=== PATIENT | male | born 1935 | race African-American/Black ===

== ENCOUNTER 2016-10-21 16:09 | Inpatient (IN) | payer MEDICARE ==
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
--- NOTE | ~2016-10-21 | CN ---
Consultation Report [address] [place]. [address] NAME: JOANNE TAVERAS : 34 STATUS : ADM IN PAT#: [id number] AGE: 80 ADM/REG DATE : 10/22/16 MR#: [id number] REPORT SERV DATE: 10/23/16 DICTATED BY: LA CASTILLO DATE: 10/23/16 REPORT STATUS : Draft TRANSCRIBED BY: MODL DATE: 10/23/16 PULMONARY CONSULTATION DATE OF CONSULTATION: 10/23/2016 REASON FOR CONSULTATION: COPD exacerbation. HISTORY OF PRESENT ILLNESS: Mr. Taveras is an 80-year-old black male former smoker with O2 dependent COPD, was admitted with wheezing and marked dyspnea for a few hours. He is being treated with bronchodilators, systemic and inhaled steroids as well as antibiotics and supplemental oxygen for a COPD exacerbation. 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 Despite his treatment has been alienated above, he complains of continued dyspnea and wheezing, though he does feel better than prior to admission. He denies fever, chills, night sweats, hemoptysis, sputum production, or chest pain. His daughter who is at the bedside confirms that he has not had these symptoms since the onset of his current illness. No close contacts have similar symptoms. He notes that he has had the flu shot this season and had a recent pneumonia vaccine though he is unable to comment on whether it was the Prevnar 13 vaccine or the Pneumovax. PAST MEDICAL HISTORY: 1. COPD as described above. 2. Chronic bronchitis. 3. Chronic hypoxia-on supplemental oxygen at a flow rate of 2 L/minute 24 hours a day. 4. Prior pulmonary embolism, treated with Coumadin for 6 months. 5. Former smoker. 6. Peripheral vascular disease with vascular stent to left femoral artery. 7. Prior CVA with residual left hemiparesis. 8. Esophageal stricture with subsequent dilatation. 9. Previous cervical fusion. 10.Hyperlipidemia. 11.GERD. 12.Prior prostate surgery. 13.Left lower extremity DVT. 14.Diabetes mellitus. FAMILY HISTORY: He denies a family history of pulmonary diseases. SOCIAL HISTORY: Mr. Taveras smoked one pack of cigarettes per day for 60 years and quit Consultation Report [address] [address] NAME: JOANNE TAVERAS : 34 STATUS : ADM IN PAT#: [id number] AGE: 80 ADM/REG DATE : 10/22/16 MR#: [id number] REPORT SERV DATE: 10/23/16 DICTATED BY: LA CASTILLO DATE: 10/23/16 REPORT STATUS : Draft TRANSCRIBED BY: MENDOZA DATE: 10/23/16 approximately 15 years ago. He denies past/present drug use, chewing tobacco, or significant secondhand smoke exposure. He denies ethanol intake. 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 He is and has 10 living children and 3 children. MEDICATIONS: Outpatient and inpatient medications were reviewed and are as documented in the record. He was unable to name his outpatient pulmonary medications, but per the available information, he was on Advair 500/50 mcg twice daily, Spiriva 18 mcg once daily, and albuterol via nebulization twice daily. He reports compliance with these medications. ALLERGIES: HE DENIES MEDICATION ALLERGIES. REVIEW OF SYSTEMS: A 10-point system review was conducted and is remarkable for the symptoms as described in the history of present illness. He denies symptoms suggestive of obstructive sleep apnea. PHYSICAL EXAMINATION: VITAL SIGNS: Temperature 98.1 degrees, heart rate 80, blood pressure 146/69, respiratory rate 18, and oxygen saturation 98% on supplemental oxygen at a flow rate of 2 L/minute. GENERAL: Pleasant, elderly black male. Alert, oriented, no apparent distress. Speaking in full sentences without problems. Occasional cough during exam. HEENT: Normocephalic. Atraumatic. There is no scleral icterus. The conjunctivae are clear. The oropharynx is clear. NECK: Supple. No lymphadenopathy was noted. LUNGS: Good effort. There are scattered inspiratory and expiratory wheezes in all reddy. There are rare rhonchi. There are no crackles. HEART: Regular rate and rhythm. No ectopy was noted. ABDOMEN: Soft. Nontender. Nondistended. There are normal bowel sounds in all four quadrants. BILATERAL EXTREMITIES: There is no clubbing, cyanosis, or edema. NEUROLOGICAL: A limited exam was found to be nonfocal. SKIN: No rashes were noted. LABORATORY RESULTS: Labs were reviewed and are as documented in record. Notable labs include a white blood cell count of 7.7. The BNP is 5.0. IMAGING: A chest x-ray done this admission did not reveal any infiltrates or effusions. There is right lower lobe atelectasis and hyperinflation that appears to be stable when compared with a previous chest x-ray done approximately one month ago. ASSESSMENT AND PLAN: Mr. Taveras is an 80-year-old black male former smoker with a chronic obstructive pulmonary disease exacerbation though he has no evidence of active infection. He currently is on antibiotics, Solu-Medrol 40 mg IV q.12 hours, Rocephin and azithromycin as well as budesonide 0.5 mg via nebulization every 12 hours. He continues to have significant symptoms despite this therapeutic regimen. Consultation Report [facility] [address] [place] [address] NAME: JOANNE TAVERAS : 34 STATUS : ADM IN [facility]#: [id number] AGE: 80 ADM/REG DATE : 10/22/16 MR#: [id number] REPORT SERV DATE: 10/23/16 DICTATED BY: LA CASTILLO DATE: 10/23/16 REPORT STATUS : Draft TRANSCRIBED BY: MENDOZA DATE: 10/23/16 Recommend: Check sputum culture. The patient is actively wheezing, so he would benefit from increased steroids. The Solu- Medrol will be increased to 60 mg IV q.6 h. and his budesonide dose will be increased to 1 mg q.12 h. via nebulization. He describes problems with expectorated sputum and does have atelectasis noted on chest imaging. Recommend improving pulmonary toilet by adding Ez-PAP and flutter valve. He should take home the flutter valve upon discharge, as this would be useful for him as an outpatient. Recommend continuing bronchodilators. Check procalcitonin. There is no evidence of infection on chest imaging. His white blood cell count is normal, and he denies sputum production. If his procalcitonin is within normal limits, could discontinue Rocephin. Would continue azithromycin for the full course. Thank you very much for this consultation. WILLIAM/MENDOZA La Castillo M.D. / [id number] CC: Giana Roy M.D.
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
[~2016-10-21 16:09] MED LIST: *UNABLE3; ACET500CAP PO; ADVAIR INH; ALAWAY0.025 % OPH; ALBUTEROL0.083 % INH; ALBUTEROL5 INH; ALPHAGAN OPH; AMITIZA24 PO; AMOXIL500 MG PO; AMOXIL500C PO; ASPERCREME TOP; ATV.5 PO; ATV1 PO; AUG500 PO; AZO-CRANBERY450 MG PO; BACDS PO; BIOTENE MOUTH SPRAY PO; BIOTENE PO; BIOTENE SPRAY MT; BISR PR; BIST PO; BRIMONIDINE 0.15% OPH; BRIMONIDINE0.2 % OPH; BROVANA15 MCG INH; CAT1 PO; CEFT5 PO; CELEXA10 PO; CLARIT10 PO; CONSTULOSE PO; COZ25 PO; COZ50 PO; COZAAR100 MG PO; DALIRESP500 MCG PO; DIAMODE2 MG PO; DITRO5 PO; DSS PO; ELIQUIS 2.5 MG2.5 MG PO; FERROUS SULF325 M1 PO; FESO4 PO; FLECTOR1.3 % TOP; FLOMAX4 PO; FLUCON1 PO; FOLIC PO; GENTEAL; GGDM5ML PO; GGEXPUD PO; HUMI PO; HYZAAR1 TAB PO; IMDUR30 PO; IMDUR60 PO; IMOD PO; IRON325 MG PO; KCL20UDL PO; KLOR-CON 1010 MEQ PO; KLOR-CON M1010 MEQ PO; KLOR-CON M2020 MEQ PO; L20 PO; LACT30UDL PO; LANTUS SC; LEVAQUIN750 MG PO; LIPITOR20 PO; LOP25 PO; MIRALAX POWDER1 PKT PO; MIRALAXPKT PO; MORPHINE 20MG/ML PO; MORPHINE S20 MG/5 ML PO; MUCINEX600 MG PO; MYLANTA LIQUID PO; MYLICON 80 MG T80 MG PO; NATURE'S OPH; NEUR300 PO; NEURUDL250 PO; NITROQUICK0.4 MG SL; NITROSTAT0.4 MG SL; NORCO1 TA1 PO; NORCO1 TA2 PO; NORV10 PO; NORV5 PO; P10 PO; P20 PO; PERI-COLACE1 TAB PO; PR25 PO; PREDFORTE OPH; PRILOSEC40 MG PO; PROAIR HFA INH; PROSCAR5 PO; PROTONIX PO; PROVENTSOL INH; PROVHFA INH; PULRESP.5 INH; PULRESP1 INH; REFRESH OPH; ROXANOL20 MG/ML PO; SALIVA SUBSTITUTE PO/LIQ; SENOKOTS PO; SENTAB PO; SPIRIVA INH; SYSTANE; Spiriva Handihaler; T PO; TAMIFLU PO; TEARS NATURA OPH; TROLAMINE TOP; TRUSOPT2 % OPH; UROGESIC-BLUE PO; VITC500 PO; VOLTAREN1 % T; XARELTO PO; XARELTO15 MG PO; XARELTO20 MG PO; Z100 PO; ZOFRAN ODT4 MG PO; ZOFRAN ODT4 MG PO/SL; ZOL50 PO; ZOLOFT25 MG PO; ZYVOXPO PO; [UNRECOGNIZED DRUG - CODE]; [UNRECOGNIZED DRUG - OTHER] PO
[2016-10-21 17:31] LABS: BASOPHILS 0.1 %; BASOPHILS ABSOLUTE 0.01 10/3/uL (0.0-0.16); EOSINOPHILS 2.5 %; EOSINOPHILS ABSOLUTE 0.17 10/3/uL (0.0-0.53); HEMATOCRIT 27.1 % (40.0-51.0); HEMOGLOBIN 8.4 g/dL (13.6-17.8); IMMATURE GRANULOCYTES 0.3 %; IMMATURE GRANULOCYTES ABSOLUTE 0.02 10/3/uL (0.0-0.11); LYMPHOCYTES 20.1 %; LYMPHOCYTES ABSOLUTE 1.38 10/3/uL (0.67-4.30); MEAN CORPUSCULAR HEMOGLOB 28.6 pg (26.0-34.0); MEAN PLATELET VOLUME 8.6 fL (9.2-13.0); MONOCYTES 4.5 %; MONOCYTES ABSOLUTE 0.31 10/3/uL (0.21-1.20); NEUTROPHILS 72.5 %; NEUTROPHILS ABSOLUTE 4.98 10/3/uL (2.02-8.40); PLATELET COUNT 328 10/3/uL (150-400); RBC DISTRIBUTION WIDTH 16.1 % (12.0-16.0); RED CELL COUNT 2.94 10/6/uL (4.7-6.1)
[2016-10-21 17:36] LABS: ER CBC TAT 0 Hrs 09 Mins; MANUAL DIFF NO %; MEAN CORPUSCULAR VOLUME 92.2 fL (80-100); WHITE BLOOD CELLS 6.9 10/3/uL (4.5-10.5)
[2016-10-21 17:40] LABS: INFLUENZA A SCREEN NEGATIVE (NEGATIVE); INFLUENZA B SCREEN NEGATIVE (NEGATIVE)
[2016-10-21 17:47] LABS: A/G RATIO 0.7 (0.7-1.9); ALBUMIN 2.8 G/DL (3.5-5.0); ALKALINE PHOSPHATASE 87 U/L (45-117); CHLORIDE, SERUM 107 MMOL/L (96-112); CO2 (CARBON DIOXIDE) 30 MMOL/L (24-34); CREATININE 1.12 MG/DL (0.70-1.30); GFR AFRICAN AMERICAN 71 ML/MIN (>=60); GFR NON AFRICAN AMERICAN 61 ML/MIN (>=60); GLOBULIN 4.1 G/DL (2.5-4.1); POTASSIUM, SERUM 4.2 MMOL/L (3.5-5.3); SGOT(AST) 18 U/L (5-40); SGPT(ALT) 28 U/L (5-65); SODIUM, SERUM 146 MMOL/L (135-148); TOTAL BILIRUBIN 0.5 MG/DL (0-1.2); TOTAL PROTEIN 6.9 G/DL (6.0-8.5)
[2016-10-21 17:48] LABS: BUN (BLOOD UREA NITROGEN) 31 MG/DL (6-23); GLUCOSE, SERUM 162 MG/DL (60-99)
[2016-10-21 18:04] LABS: BAND NEUTROPHILS 3 %; BASOPHILS 2 %; BASOPHILS ABSOLUTE (CALC) 0.14 10/3/uL (0.0-0.16); ER DIFF TAT 0 Hrs 37 Mins; LYMPHOCYTES 12 %; LYMPHOCYTES ABSOLUTE (CALC) 0.83 10/3/uL (0.67-4.30); MONOCYTES 4 %; MONOCYTES ABSOLUTE (CALC) 0.28 10/3/uL (0.21-1.20); NEUTROPHILS ABSOLUTE (CALC) 5.66 10/3/uL (2.02-8.40); SEGMENTED NEUTROPHIL (0) 79 %; TOTAL NUCLEATED CELLS 100
[2016-10-21 18:05] LABS: HYPOCHROMIA 1+ (3-10/OIF) (0-2/OIF); PLATELET ESTIMATE ADQ (ADEQUATE)
[2016-10-21] MEDS ORDERED: AMITIZA24 PO (23:07)
[2016-10-21] MEDS ORDERED: PERI-COLACE1 TAB PO (23:08)
[2016-10-21] MEDS ORDERED: FERROUS SULFATE PO (23:08)
[2016-10-21] MEDS ORDERED: ACET500CAP PO (23:09)
[2016-10-22 03:22] LABS: BASOPHILS 0.2 %; BASOPHILS ABSOLUTE 0.01 10/3/uL (0.0-0.16); EOSINOPHILS 0 %; HEMOGLOBIN 8.8 g/dL (13.6-17.8); IMMATURE GRANULOCYTES 0.2 %; IMMATURE GRANULOCYTES ABSOLUTE 0.01 10/3/uL (0.0-0.11); LYMPHOCYTES 10.2 %; LYMPHOCYTES ABSOLUTE 0.53 10/3/uL (0.67-4.30); MEAN CORPUS HGB CONC 30.3 g/dL (32.0-36.0); MEAN CORPUSCULAR HEMOGLOB 28.1 pg (26.0-34.0); MEAN CORPUSCULAR VOLUME 92.7 fL (80-100); MEAN PLATELET VOLUME 9.9 fL (9.2-13.0); MONOCYTES 0.6 %; MONOCYTES ABSOLUTE 0.03 10/3/uL (0.21-1.20); NEUTROPHILS 88.8 %; NEUTROPHILS ABSOLUTE 4.64 10/3/uL (2.02-8.40); PLATELET COUNT 408 10/3/uL (150-400); RBC DISTRIBUTION WIDTH 16.2 % (12.0-16.0); RED CELL COUNT 3.13 10/6/uL (4.7-6.1); WHITE BLOOD CELLS 5.2 10/3/uL (4.5-10.5)
[2016-10-22 03:23] LABS: MANUAL DIFF NO %
[2016-10-22 03:34] LABS: BUN (BLOOD UREA NITROGEN) 34 MG/DL (6-23); CALCIUM, SERUM 8.6 MG/DL (8.5-10.4); CHLORIDE, SERUM 104 MMOL/L (96-112); CO2 (CARBON DIOXIDE) 26 MMOL/L (24-34); CREATININE 1.42 MG/DL (0.70-1.30); GFR AFRICAN AMERICAN 53 ML/MIN (>=60); GFR NON AFRICAN AMERICAN 46 ML/MIN (>=60); POTASSIUM, SERUM 4.7 MMOL/L (3.5-5.3); SODIUM, SERUM 144 MMOL/L (135-148)
[2016-10-22 03:37] LABS: GLUCOSE, SERUM 195 MG/DL (60-99)
[2016-10-23 05:05] LABS: BASOPHILS 0 %; EOSINOPHILS 0 %; IMMATURE GRANULOCYTES 0.3 %; IMMATURE GRANULOCYTES ABSOLUTE 0.02 10/3/uL (0.0-0.11); LYMPHOCYTES 8.1 %; LYMPHOCYTES ABSOLUTE 0.63 10/3/uL (0.67-4.30); MEAN CORPUSCULAR HEMOGLOB 28.8 pg (26.0-34.0); MEAN CORPUSCULAR VOLUME 90.3 fL (80-100); MONOCYTES 6.5 %; NEUTROPHILS 85.1 %; NEUTROPHILS ABSOLUTE 6.59 10/3/uL (2.02-8.40); PLATELET COUNT 335 10/3/uL (150-400); RBC DISTRIBUTION WIDTH 15.8 % (12.0-16.0); RED CELL COUNT 2.78 10/6/uL (4.7-6.1)
[2016-10-23 05:10] LABS: HEMATOCRIT 25.1 % (40.0-51.0); MANUAL DIFF NO %; MEAN CORPUS HGB CONC 31.9 g/dL (32.0-36.0); WHITE BLOOD CELLS 7.7 10/3/uL (4.5-10.5)
[2016-10-23 05:11] LABS: CALCIUM, SERUM 8.4 MG/DL (8.5-10.4); CHLORIDE, SERUM 105 MMOL/L (96-112); CO2 (CARBON DIOXIDE) 28 MMOL/L (24-34); SODIUM, SERUM 142 MMOL/L (135-148)
[2016-10-23 05:13] LABS: BUN (BLOOD UREA NITROGEN) 29 MG/DL (6-23); CREATININE 0.78 MG/DL (0.70-1.30); GFR AFRICAN AMERICAN 98 ML/MIN (>=60); GFR NON AFRICAN AMERICAN 85 ML/MIN (>=60); GLUCOSE, SERUM 125 MG/DL (60-99)
[2016-10-24 05:53] LABS: BASOPHILS 0 %; EOSINOPHILS 0 %; HEMATOCRIT 25.6 % (40.0-51.0); HEMOGLOBIN 8.1 g/dL (13.6-17.8); IMMATURE GRANULOCYTES 1.1 %; IMMATURE GRANULOCYTES ABSOLUTE 0.08 10/3/uL (0.0-0.11); LYMPHOCYTES 6.7 %; LYMPHOCYTES ABSOLUTE 0.51 10/3/uL (0.67-4.30); MEAN CORPUS HGB CONC 31.6 g/dL (32.0-36.0); MEAN CORPUSCULAR HEMOGLOB 28.4 pg (26.0-34.0); MEAN CORPUSCULAR VOLUME 89.8 fL (80-100); MEAN PLATELET VOLUME 9.2 fL (9.2-13.0); MONOCYTES 1.6 %; MONOCYTES ABSOLUTE 0.12 10/3/uL (0.21-1.20); NEUTROPHILS 90.6 %; NEUTROPHILS ABSOLUTE 6.89 10/3/uL (2.02-8.40); PLATELET COUNT 358 10/3/uL (150-400); RBC DISTRIBUTION WIDTH 15.9 % (12.0-16.0); RED CELL COUNT 2.85 10/6/uL (4.7-6.1); WHITE BLOOD CELLS 7.6 10/3/uL (4.5-10.5)
[2016-10-24 05:56] LABS: MANUAL DIFF NO %
[2016-10-24 06:13] LABS: BUN (BLOOD UREA NITROGEN) 23 MG/DL (6-23); CALCIUM, SERUM 8.2 MG/DL (8.5-10.4); CHLORIDE, SERUM 105 MMOL/L (96-112); CO2 (CARBON DIOXIDE) 27 MMOL/L (24-34); CREATININE 0.86 MG/DL (0.70-1.30); FERRITIN 88 NG/ML (26-388); GFR AFRICAN AMERICAN 94 ML/MIN (>=60); GFR NON AFRICAN AMERICAN 81 ML/MIN (>=60); GLUCOSE, SERUM 185 MG/DL (60-99); IRON BINDING CAPACITY 232 MCG/DL (250-450); IRON, SERUM 48 MCG/DL (35-150); POTASSIUM, SERUM 3.7 MMOL/L (3.5-5.3); SODIUM, SERUM 142 MMOL/L (135-148)
[2016-10-24 06:31] LABS: PROCALCITONIN 0.05 ng/mL (<0.5)
[2016-10-26 06:07] LABS: BASOPHILS 0 %; EOSINOPHILS 0 %; HEMATOCRIT 26.6 % (40.0-51.0); HEMOGLOBIN 8.9 g/dL (13.6-17.8); IMMATURE GRANULOCYTES 0.3 %; IMMATURE GRANULOCYTES ABSOLUTE 0.02 10/3/uL (0.0-0.11); LYMPHOCYTES 9.7 %; LYMPHOCYTES ABSOLUTE 0.61 10/3/uL (0.67-4.30); MEAN CORPUS HGB CONC 33.5 g/dL (32.0-36.0); MEAN CORPUSCULAR HEMOGLOB 29.5 pg (26.0-34.0); MEAN CORPUSCULAR VOLUME 88.1 fL (80-100); MEAN PLATELET VOLUME 9.3 fL (9.2-13.0); MONOCYTES ABSOLUTE 0.57 10/3/uL (0.21-1.20); NEUTROPHILS ABSOLUTE 5.12 10/3/uL (2.02-8.40); PLATELET COUNT 388 10/3/uL (150-400); RBC DISTRIBUTION WIDTH 15.4 % (12.0-16.0); RED CELL COUNT 3.02 10/6/uL (4.7-6.1); WHITE BLOOD CELLS 6.3 10/3/uL (4.5-10.5)
[2016-10-26 06:08] LABS: MANUAL DIFF NO %
[2016-10-26 06:19] LABS: BUN (BLOOD UREA NITROGEN) 20 MG/DL (6-23); CALCIUM, SERUM 8.2 MG/DL (8.5-10.4); CHLORIDE, SERUM 105 MMOL/L (96-112); CO2 (CARBON DIOXIDE) 29 MMOL/L (24-34); CREATININE 0.83 MG/DL (0.70-1.30); GFR AFRICAN AMERICAN 96 ML/MIN (>=60); GFR NON AFRICAN AMERICAN 83 ML/MIN (>=60); POTASSIUM, SERUM 3.5 MMOL/L (3.5-5.3); SODIUM, SERUM 140 MMOL/L (135-148)
[2016-10-26 06:20] LABS: GLUCOSE, SERUM 132 MG/DL (60-99)
[2016-10-26] MEDS ORDERED: COZ50 PO (09:13)
[2016-10-26] MEDS ORDERED: DALIRESP500 MCG PO (09:14)
[2016-10-26] MEDS ORDERED: P20 PO (09:22)
[2016-10-26] MEDS ORDERED: ATV.5 PO (09:24)
== END 2016-10-26 18:19 | disposition home or self-care (01) | DRG 191 ==
LOC: ER 16:09 → CDU1 22:19 → 4SO 10-23 12:08
PROVIDERS: Emergency Medicine; Family Medicine; Internal Medicine; Internal Medicine Geriatric Medicine
DX: J44.1 Chronic obstructive pulmonary disease with (acute) exacerbation (principal); I69.354 Hemiplegia and hemiparesis following cerebral infarction affecting left non-dominant side; Z99.81 Dependence on supplemental oxygen; J98.11 Atelectasis; N18.3 Chronic kidney disease, stage 3 (moderate); Z66 Do not resuscitate; Z51.5 Encounter for palliative care; Z79.51 Long term (current) use of inhaled steroids; Z79.891 Long term (current) use of opiate analgesic; Z87.891 Personal history of nicotine dependence; D64.9 Anemia, unspecified; F41.9 Anxiety disorder, unspecified; R33.9 Retention of urine, unspecified; H40.9 Unspecified glaucoma; I12.9 Hypertensive chronic kidney disease with stage 1 through stage 4 chronic kidney disease, or unspecified chronic kidney disease; Z86.711 Personal history of pulmonary embolism; Z95.820 Peripheral vascular angioplasty status with implants and grafts; Z98.1 Arthrodesis status; K21.9 Gastro-esophageal reflux disease without esophagitis; Z90.79 Acquired absence of other genital organ(s); Z86.718 Personal history of other venous thrombosis and embolism; R07.89 Other chest pain; I95.1 Orthostatic hypotension
CPT/HCPCS: 71010; 80048; 80053; 82272; 82728; 83540; 83550; 83880; 84145; 84484; 85025; 87040; 87205; 87804; 93005; 93971; 94640; 96365; 96375; 99285; A9270-GY; J0360; J0456; J0583; J2920; J2930